=== PATIENT | female | born 1990 | race Caucasian/White ===

== ENCOUNTER 2017-12-07 05:39 | Observation (INO) | payer MEDICAID ==
[2017-12-07] MEDS ORDERED: NS 1,000 ML IV ONE ×2 (06:00)
[2017-12-07] MEDS ORDERED: ONDANSETRON 4 MG/2 ML VIAL IVP ONE (06:00)
[2017-12-07] MEDS ORDERED: LORazepam 2 MG/ML INJ IVP ONE (06:01)
[2017-12-07 06:08] LABS: PLATELET COUNT 301 10^3/uL (150-400)
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
[2017-12-07] MEDS ORDERED: ONDANSETRON 4MG PREPACK#2 BTL TAKEHOME ONE (07:36)
[2017-12-07] MEDS ORDERED: KETOROLAC 15 MG/1 ML SDV IVP ONE (08:06)
[2017-12-07] MEDS ORDERED: HALOPERIDOL LACT 5 MG/ML INJ IVP ONE (08:28)
[2017-12-07] MEDS ORDERED: BACITRACIN OINTMENT 1 PACKET TP ONE (08:30)
[2017-12-07 09:54] LABS: PLATELET COUNT 277 10^3/uL (150-400)
[2017-12-07] MEDS ORDERED: IOPAMIDOL (ISOVUE-300) 100 ML BTL ONE (10:22)
[2017-12-07] MEDS ORDERED: ONDANSETRON DISINTEGRATING 4 MG TAB PO PRN (10:31)
[2017-12-07] MEDS ORDERED: PROMETHAZINE HCL 25 MG TAB PO PRN (10:31)
[2017-12-07] MEDS ORDERED: HALOPERIDOL 0.5 MG TAB PO PRN (10:33)
--- NOTE | 2017-12-07 11:05 | CPEKG ---
Heart Rate: 86 RR Interval: 698 P-R Interval: 132 QRSD Interval: 92 QT Interval: 380 QTC Interval: 455 P Yermo: 84 QRS Yermo: 63 T Wave Yermo: 54 EKG Severity - NORMAL ECG - EKG Impression: SINUS RHYTHM Electronically Signed By: Ruby Ram 07-Dec-2017 15:20:00
[2017-12-07] MEDS: ONDANSETRON 4 MG/2 ML VIAL IVP PRN ×2 (14:26→19:44)
[2017-12-07] MEDS: DICYCLOMINE 20 MG TAB PO PRN ×2 (14:26→18:42)
[2017-12-07] MEDS: PROMETHAZINE HCL 25 MG/ML INJ IVP PRN (15:01)
[2017-12-07] MEDS ORDERED: IBUPROFEN 600 MG TAB PO PRN (15:54)
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
[2017-12-07] MEDS ORDERED: SILVER SULFADIAZINE 400 GM JAR TP ONE (16:00)
[2017-12-07] MEDS: KETOROLAC 30 MG/1 ML SDV IVP PRN (18:05)
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
[2017-12-07] MEDS: LORazepam 2 MG/ML INJ IVP PRN (19:44)
[2017-12-07] MEDS: NS 1,000 ML IV SCH (19:48)
[2017-12-07] MEDS: SILVER SULFADIAZINE 400 GM JAR TP SCH (21:45)
[2017-12-07] MEDS: FAMOTIDINE 20 MG TAB PO SCH (21:46)
[2017-12-08] MEDS: KETOROLAC 30 MG/1 ML SDV IVP PRN ×2 (00:16→07:50)
[2017-12-08] MEDS: FAMOTIDINE 20 MG TAB PO SCH ×2 (00:34→09:26)
[2017-12-08] MEDS: HALOPERIDOL LACT 5 MG/ML INJ IVP PRN ×2 (00:59→07:49)
[2017-12-08] MEDS: DICYCLOMINE 20 MG TAB PO PRN (02:15)
[2017-12-08] MEDS: LORazepam 2 MG/ML INJ IVP PRN ×2 (04:40→13:20)
[2017-12-08] MEDS: NS 1,000 ML IV SCH (04:43)
[2017-12-08 05:04] LABS: PLATELET COUNT 224 10^3/uL (150-400)
[2017-12-08] MEDS: ONDANSETRON 4 MG/2 ML VIAL IVP PRN (05:43)
[2017-12-08] MEDS: PROMETHAZINE HCL 25 MG/ML INJ IVP PRN (06:15)
[2017-12-08] MEDS ORDERED: Norgestimate-Ethinyl Estradiol [Mononessa 28 Tablet] PO SCH (09:00)
[2017-12-08] MEDS ORDERED: FLUTICASONE NASAL 120 SPRAYS/16 GM MDI EACHNARE SCH (09:00)
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
[2017-12-08] MEDS: SILVER SULFADIAZINE 400 GM JAR TP SCH (11:24)
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
--- NOTE | 2017-12-08 12:05 | WOCRNPDOC ---
WOCRN Advanced Assessment Note - Skin Integrity Problem, Advanced Assess Back Burn Dressing Type: Abdominal Pads, Gauze Dressing Description: Intact, Shadowed Exudate Amount: Moderate Exudate Characteristic(s): Serous Integumentary Issue Intervention: Dressing Changed, Dressing Initialed & Dated Janene Wound Tissue: Erythema, Painful/Tender Janene Wound Swelling: Mild Wound Bed Color: [place], Yellow Wound Bed Constitution: Red/[place]auula - Non Granular Tissue, De-roofed Serous Blister (x8 ) Site Measurement - Head-to-Toe Length X Width X Depth (cm): lower thoracic deroofed blister: 3.7x4x0.1, lumbar burn area with x7 open blisters extending toward left lateral back [id number] to 0.1(in areas where blisters are deroofed). Skin Integrity Problem Comment: Took down dressing and cleaned with ns and gauze lightly to remove silvadene and visualize wound bed. There is an area of intact erythematic burn along her right back as well, however this is likely not going to evolve further. The rest of the area may develop a few more small blisters but at this point should be close to fully evolved. Applied mepitel contact layer to base of wounds. Covered open wound beds with puraycn antimicrobial (weak hypoclorus acid) gel. The lumbar area was then covered with an Aquacel dressing and the remainder of the area wiht non bordered Mepliex. ABD was placed over the wounds and secured with medipore tape after applying skin prep. Lore HUYNH and Clarice RN in room for care. Viola HUYNH visualized dressing application. Discussed plan with Dr. Muniz who also visualized wound.
[2017-12-08 16:03] VITALS: BP 110/64
[2017-12-08] MEDS ORDERED: hydrOXYzine HCL 25 MG TAB PO ONE (18:00)
--- NOTE | 2017-12-08 18:27 | PDDCSUM ---
Discharge Summary Discharge Summary: DISCHARGE SUMMARY FOLLOW-UP ITEMS: Arrange outpatient mental health follow-up DATE OF ADMISSION: 12/07/2017 DATE OF DISCHARGE: 12/08/2017 DISCHARGE DIAGNOSES: 1. Suspected acute functional abdominal pain syndrome 2. Systemic inflammatory response syndrome 3. Acute hyperbilirubinemia 4. Acute hyperkalemia 5. Second-degree ferguson 6. Suspected underlying mood disorder CONSULTATIONS: Psychiatry, general surgery PROCEDURES / IMAGING: CT of the abdomen demonstrating no evidence of appendicitis, no evidence of pancreatitis, some mild intrahepatic biliary ductal dilatation but no dilatation of the common bile duct CHIEF COMPLAINT: Acute abdominal pain, nausea, vomiting SUBJECTIVE: Patient is feeling well at time discharge, she is requesting to be discharged PHYSICAL EXAM ON DISCHARGE: Systolic blood pressure 100-150, heart rate 60-100, afebrile overnight, satting on room air, alert awake oriented x3, flat affect, follows some commands, volitionally does not participate in the majority of the exam, abdomen is soft nontender nondistended, bowel sounds are present, heart rhythm is regular, she is not tachycardic, her ferguson on her backside are appropriately dressed LABS ON DISCHARGE: Potassium 3.5, creatinine 0.7, white blood cell count 8000, hemoglobin 11.1, liver panel unremarkable, tox screen positive for benzodiazepines and THC, lipase is normal HOSPITAL COURSE BY PROBLEM: 1. Suspected functional abdominal pain syndrome. The patient presented with acute nausea vomiting and abdominal pain, most likely secondary to acute functional abdominal pain syndrome which she has been experiencing for at least the past 10 years. Although the patient uses marijuana very regularly, it is unclear whether she is experiencing a singular cannabinoid hyperemesis syndrome , versus functional abdominal pain syndrome, as I suspect there is a significant amount of overlay between the 2 in this patient. Review of patient' s past workup with her mother reveals that she has undergone extensive imaging and testing, without any structural abnormality identified. Consequently, we ruled out particularly insidious etiology with a CT scan of her abdomen which was essentially normal, supportive care which resulted in improvement in her symptoms, stabilization of her vital signs, and stabilization of her laboratory values. Her systemic inflammatory response syndrome on presentation was most likely secondary to acute distress and discomfort, and all these abnormalities resolved with supportive care. We recommend discontinuing marijuana use to gauge effect, as well as avoiding opiate and benzodiazepine medications for her abdominal pain. She reports that she has good trust with her primary care provider, who was recommended Bentyl, and this seems to be an appropriate intervention as well as as needed antiemetics. Given that the patient is currently eating drinking and abdominal symptoms are adequately managed, the patient is safe to be discharged home. 2. Suspected mood disorder. It is suspected that the patient has underlying mood disorder such as anxiety and/or depression, and she recently experienced an acute exacerbating incident with her boyfriend. The patient was seen in consultation by SARTHAK and Dr. Suri Jang from Psychiatry, and the patient was determined to not be gravely disabled, but it was strongly recommended the patient seek outpatient mental health assistance. We provided the patient with outpatient resources in her home town. We also strongly recommended consideration of SSRI treatment, which the patient has historically been resistant. We recommended avoiding benzodiazepines as these will likely exacerbate her underlying issues. In the short term, we recommended 1 as needed hydroxyzine, the patient was provided with a script for 5 tabs as needed. As the patient was not deemed appropriate for inpatient Behavioral Health stabilization, she is safe to be discharged home, at her request. 3. Second-degree ferguson. The patient experienced second-degree ferguson located on her back, most likely secondary to falling asleep in the hot bath which is being utilized to treat her abdominal symptoms. Patient seen consultation by General surgery, and they recommended specific wound care, which was provided to the patient. She should have outpatient follow-up with her primary care provider office and should be arranged to follow up at a wound clinic if deemed appropriate at that time. DISCHARGE MEDICATIONS: Please see official discharge medication reconciliation sheet in chart , Silvadene topically twice daily, hydroxyzine 25 mg as needed, 5 tabs prescribed. DISCHARGE INSTRUCTIONS: Please follow up with primary care provider as soon as possible and arrange for outpatient mental health follow-up as provided.
== END 2017-12-08 18:25 | disposition home or self-care (01) ==
LOC: F3E 11:19
PROVIDERS: ADMIT Internal Medicine; ATTEND Internal Medicine
PROC: 2W25X4Z Dressing of Back using Bandage (ICD-10-PCS; principal; 2017-12-07)
DX: R10.9 Unspecified abdominal pain (principal); R11.2 Nausea with vomiting, unspecified; R65.10 Systemic inflammatory response syndrome (SIRS) of non-infectious origin without acute organ dysfunction; E80.6 Other disorders of bilirubin metabolism; E87.5 Hyperkalemia; E86.9 Volume depletion, unspecified; T21.24XA Burn of second degree of lower back, initial encounter; R00.0 Tachycardia, unspecified; D72.829 Elevated white blood cell count, unspecified; X11.0XXA Contact with hot water in bath or tub, initial encounter; F12.10 Cannabis abuse, uncomplicated; K21.9 Gastro-esophageal reflux disease without esophagitis
CPT/HCPCS: 16020; 74177; 90791; 93005; 96361; 96374; 96375; 99285; G0378; 80307; G0480; J1630; J1885; J2060; J2405; J2550; Q9967